=== PATIENT | female | born 1960 | race Caucasian/White ===

== ENCOUNTER 2018-02-07 07:00 | Day surgery (SDC) | END 2018-02-07 16:37 | disposition home or self-care (01) ==

== ENCOUNTER 2018-07-28 09:11 | Inpatient (IN) | payer OTHER ==
[2018-07-27 13:09] VITALS: BMI 28.7
[~2018-07-28] VITALS: Ht 160 cm; Wt 73.6 kg
[2018-07-28] VITALS (21 sets, daily range): BP systolic 121–195; BP diastolic 59–94; PULSE 58–92; RESP 14–18; Ht 160 cm; Wt 73.6 kg
[~2018-07-28 09:11] MED LIST: CEFAZOLIN 2 GM/50 ML (PMX) 50 ML IVPB SCH; METO-335 PO; SOD CHLORIDE 0.9% 1,000 ML IV ONE
--- NOTE | 2018-07-28 12:56 | PREAC ---
Date/Time of Note Date/Time of Note DATE: 07/28/18 TIME: 12:54 Anesthesia Eval and Record Evaluation Time Pre-Procedure Interview DATE: 07/28/18 TIME: 12:54 Age 57 Sex female NPO: 8 hrs Preoperative diagnosis L breast CA Planned procedure L needle loc partial mastectomy Past Medical History Past Medical History: Includes Cardio: HTN Psych: Anxiety (palpitations) Surgery & Anesthesia Issues No known issue Meds Anticoagulation: No Beta Shanda within 24 hr: Yes Reported Medications Metoprolol Succinate* (Toprol XL*) 25 Mg Tab.sr.24h, 25 MG PO DAILY, #30 TAB 02/07/18 Current Medications Cefazolin Sodium/ Dextrose 50 ml @ 100 mls/hr PRE-OP IVPB ; Start 07/28/18 at 06:00; Stop 07/28/18 at 15:00 Sodium Chloride 1,000 ml @ 75 mls/hr [id number] ONCE IV ; Start 07/28/18 at 06:00; Stop 07/28/18 at 19:19 Meds reviewed: Yes Allergies Coded Allergies: No Known Allergies (Verified Allergy, Unknown, 07/28/18) Allergies Reviewed: Yes Labs/Studies Labs Reviewed: Reviewed by anesthesiologist test: N/A Pre-procedure Exam Airway: Adequate mouth opening, Adequate thyromental dist Mallampati: Mallampati II Teeth: Normal Lung: Normal Heart: Normal ASA Physical Status ASA physical status: 2 Emergency: None Planned Anesthetic General/MAC: LMA Pre-operative Attestations Prior to commencing anesthesia and surgery, the patient was re-evaluated, there was verification of: *The patient's identity *The results of appropriate recent lab work and preoperative vital signs *The above evaluation not changing prior to induction *Anesthetic plan, risk benefits, alternative and complications discussed with patient/family; questions answered; patient/family understands, accepts and wishes to proceed. Stenographer Secretary used JENNA NINA July 28, 2018 12:56
[2018-07-28] MEDS ORDERED: FENTAnyl 50 MCG/ML VIAL IV PRN ×2 (13:00)
[2018-07-28] MEDS ORDERED: OXYCODONE/ACETAMINOPHEN (5/325) TAB PO PRN ×2 (13:00)
[2018-07-28] MEDS ORDERED: ALBUTEROL 0.083% (NEB) 2.5 MG/3 ML AMP HHN PRN (13:00)
[2018-07-28] MEDS ORDERED: MEPERIDINE 25 MG INJ IV PRN (13:00)
[2018-07-28] MEDS ORDERED: morphine (1 MG/ML) 10ML SYRINGE IV PRN ×2 (13:00)
[2018-07-28] MEDS ORDERED: ONDANSETRON 4 MG INJ IV PRN ×2 (13:00→15:30)
[2018-07-28] MEDS ORDERED: HYDROmorphONE 1 MG/5 ML IV SYRINGE IV PRN ×3 (13:00)
[2018-07-28] MEDS ORDERED: DIPHENHYDRAMINE 50 MG INJ IV PRN (13:00)
[2018-07-28] MEDS ORDERED: ISOSULFAN BLUE 1% 5 ML INJ SC ONE (13:11)
[2018-07-28] MEDS ORDERED: MIDAZOLAM 1 MG/ML 2 ML INJ ONE (13:21)
[2018-07-28] MEDS ORDERED: FENTAnyl 50 MCG/ML VIAL ONE ×2 (13:21→15:16)
[2018-07-28] MEDS ORDERED: CEFAZOLIN 1 GM INJ ONE (13:21)
[2018-07-28] MEDS ORDERED: PROPOFOL 40 ML ONE (13:21)
[2018-07-28] MEDS ORDERED: LIDOCAINE 2% (SDV) 5 ML INJ ONE (13:21)
[2018-07-28] MEDS ORDERED: ONDANSETRON 4 MG INJ ONE (13:22)
[2018-07-28] MEDS ORDERED: FAMOTIDINE 20 MG INJ ONE (13:22)
--- NOTE | 2018-07-28 15:07 | SIPON ---
Date/Time of Note Date/Time of Note DATE: 07/28/18 TIME: 15:06 Operative Report Preoperative Diagnosis Locally advanced left breast cancer Postoperative Diagnosis Same Operation/Procedure Performed Left needle directed partial mastectomy and axillary dissection utilizing se ntinel lymph node technique Surgeon see signature line sales and marketing assistant Dr Momin Anesthesia: general Estimated blood loss: 10 - 50 ml's Transfusion Required none Specimen Left partial mastectomy specimen sentinel lymph node and additional axillary nodes Grafts/Implants none Complications none BAIRON SCHMIDT MD July 28, 2018 15:07
--- NOTE | 2018-07-28 15:25 | PAC ---
Date/Time of Note Date/Time of Note DATE: 07/28/18 TIME: 15:24 Post-Anesthesia Notes Post-Anesthesia Note Last documented vital signs Vital Signs Date Temp Pulse Resp B/P (MAP) Pulse Ox O2 O2 Flow FiO2 Time Delivery Rate 07/28/18 97.2 98 65 94 16 16 166/74 98 100 Room 12:50 151 (104) 187 Air face mask 6L Activity: WNL Respiratory function: WNL Cardiovascular function: WNL Mental status: Baseline Pain reasonably controlled: Yes Hydration appropriate: Yes Nausea/Vomiting absent: Yes JENNA NINA July 28, 2018 15:25
[2018-07-28] MEDS ORDERED: ACETAMINOPHEN 1000MG/100ML IV 100 ML IVPB PRN (15:30)
[2018-07-28] MEDS: LABETALOL HCL 20MG INJ IV PRN ×2 (15:35→15:44)
[2018-07-28] MEDS ORDERED: KETOROLAC 30 MG INJ IV STA (17:27)
[2018-07-28] MEDS ORDERED: hydrALAzine 20 MG INJ IV PRN (17:30)
[2018-07-28] MEDS ORDERED: METOPROLOL (XL) 25 MG TAB PO SCH (17:30)
[2018-07-28] MEDS: D5W-0.45 NACL + KCL 20 MEQ 1,000 ML IV SCH ×2 (17:42)
--- NOTE | 2018-07-28 18:15 | OPR ---
DATE OF OPERATION: 07/28/2018 PREOPERATIVE DIAGNOSIS: Locally advanced left breast cancer. POSTOPERATIVE DIAGNOSIS: Locally advanced left breast cancer. OPERATION PERFORMED: Needle-directed left partial mastectomy and axillary dissection utilizing senti narinder lymph node technique. ANESTHESIA: General. ANESTHESIOLOGIST: Ghada Florence MD SURGEON: Christopher Nolasco MD ASSITANT: ____ INDICATIONS FOR PROCEDURE: The patient is a 57-year-old female that presented with a 4 cm tumor whic h was HER-2 positive; therefore, she underwent neoadjuvant chemotherapy. She has very good response to neoadjuvant chemotherapy and was a candidate for breast conservation surgery. She consented and w as scheduled for surgery. DESCRIPTION OF PROCEDURE: The patient on the morning of surgery presented to [facility] where she underwent localization of the lesion performed by attending radiologi st, Dr. Jun Spicer. Subsequently, she was brought to the operating theater and placed under gen eral endotracheal tube anesthesia. The left breast and axillary region was prepped and draped in usu al sterile fashion. Approximately 3 to 4 mL of 1% Lymphazurin blue dye were then injected peritumora lly and the breast was gently massaged for approximately 12 minutes. At this point, a 3 to 4 cm inci young was made in the left axillary hairline. Subcutaneous tissue was dissected with cautery down thr ough the clavipectoral fascia. A dye-stained lymphatic was identified and traced to the sentinel nod e. The sentinel node was associated with several other somewhat enlarged nodes. The sentinel node w as removed using the LigaSure device and an additional level 1 nodes which appeared to be enlarged we re also removed using the LigaSure device. Intraoperative analysis of the sentinel node did not reve al definite evidence of metastatic disease; therefore, no further lymph nodes were taken. The specim ens were sent for permanent pathologic analysis. The wound was irrigated. Minimal bleeding was cont rolled with cautery. A #10 flat Jim-Lizarraga drain was then brought through the left mid axillary l ine, cut to size and laid within the axilla. It was secured in place with 2-[address] andard fashion and the skin was then reapproximated with 4-0 Vicryl suture in interrupted fashion and then final skin approximation took place with 4-0 Vicryl suture in subcuticular fashion. Attention was then directed to performing the partial mastectomy. A curvilinear incision was made in the upper inner quadrant of the breast near the previously placed localization wires. Subcutaneous tissue was dissected with cautery. The skin edges were then elevated with skin hooks and wide circumferential dissection of the tissue bracketed by the [address]. There was severe scar tissue exte nding into the intercostal muscle; therefore, a portion of the intercostal muscle was removed. The s pecimen was then transected, oriented, and sent for permanent pathologic analysis. Decision was made to mobilize a local tissue adjacent to the medial aspect of the incision, and this was rotated somew hat medially to cover the defect over the muscle that had been removed. It was secured in place with multiple 2-0 silk sutures. The wound was then irrigated. Minimal bleeding was controlled with caut tosin. The skin was then closed in 2-layer fashion with 4-0 Vicryl sutures in interrupted fashion, fol lowed by final skin approximation with 5-0 PDS sutures in subcuticular fashion. Benzoin and Steri-St rips were applied to both incisions. The patient tolerated procedure well. The estimated blood loss was approximately 30 mL. There were no complications and the patient was transported in [facility] to the recovery room. Dictated By: CHRISTOPHER COLON/MANASA Conf#: [id number] DID#: [id number]
--- NOTE | 2018-07-28 23:18 | HP ---
DATE OF ADMISSION: 07/28/2018 CHIEF COMPLAINT AND HISTORY OF PRESENT ILLNESS: History has been obtained from medical record and di scussion with patient's daughter. The patient is a 57-year-old female with history of hypertension w ho was diagnosed with a left-sided locally advanced breast cancer. The patient's tumor was HER-2 pos itive. The patient therefore underwent neoadjuvant chemotherapy with good response and was a lokesh te for breast conservation surgery. The patient underwent needle-directed left partial mastectomy an d axillary resection by Dr. Christopher Nolasco. Postoperatively the patient has significant pain and also had uncontrolled blood pressure. The patient is being admitted for further evaluation and management . REVIEW OF SYSTEMS: The patient denied any nausea or vomiting. No reported vomiting. No reported le g edema. No reported headache, dizziness or syncope. No history of focal weakness. No history of r ecent fever or chills. No history of recent dysuria or hematuria. Other than postoperative pain, re st of review of systems unremarkable. PAST MEDICAL HISTORY: As stated above. PAST SURGICAL HISTORY: As stated above. In addition, the patient also has history of Port-A-Cath pl acement back in January 2018. ALLERGIES: NONE. FAMILY HISTORY: Noncontributory. SOCIAL HISTORY: No smoking or alcohol. MEDICATIONS PRIOR TO ADMISSION: Toprol. PHYSICAL EXAMINATION: GENERAL: The patient is awake, alert, fairly oriented. VITAL SIGNS: Temperature 98, pulse 67, respiration 18, blood pressure 195/84, O2 saturation is 100% on 2 liters cannula. HEENT: No eye discharge or redness. Conjunctivae and lids are normal. Oropharynx is clear. NECK: Supple. No mass or thyromegaly. CHEST: Fairly clear. CARDIOVASCULAR: S1, S2 normal. No murmur. ABDOMEN: Soft, nontender and nondistended. EXTREMITIES: No leg edema. NEUROLOGIC: The patient is awake, alert, fairly oriented with no gross focal deficit. RECENT LABORATORY DATA: BUN 19, creatinine 0.6, sodium 141, potassium 3.9, glucose 130, calcium 9.2, bilirubin 0.4, AST 16, ALT 14, alkaline phosphatase 114. IMPRESSION: 1. Locally advanced left breast cancer status post chemo and underwent needle-directed left partial mastectomy and axillary resection. 2. Hypertension out of control. PLAN: 1. The patient admitted on telemetry floor. The patient will be started on clear liquid diet, which will be advanced as tolerated. 2. Toprol will be resumed and we will also add IV hydralazine 20 mg q.6 hours p.r.n. for uncontrolle d blood pressure. 3. For pain, the patient will be started on Tylenol, [place] and IV morphine. 4. We will use SCD for DVT prophylaxis. We will do CBC and BMP tomorrow. 5. Plan of care was discussed with the family. If patient continues to do well, she will be dischar ge home tomorrow. Dictated By: INURKA MARQUEZ MD AB/NTS Conf#: [id number] DID#: [id number] CC: CHRISTOPHER NOLASCO MD;*End*
[2018-07-29] VITALS (11 sets, daily range): BP systolic 113–153; BP diastolic 58–70; PULSE 68–88; RESP 17–18
[2018-07-29] MEDS: morphine 2 MG INJ IV PRN ×2 (02:52→20:10)
[2018-07-29] MEDS: D5W-0.45 NACL + KCL 20 MEQ 1,000 ML IV SCH ×2 (07:07→16:37)
[2018-07-29] MEDS: HYDROCODONE/APAP (5/325) TAB PO PRN ×3 (07:48→22:30)
[2018-07-29] MEDS: METOPROLOL (XL) 50 MG TAB PO SCH (08:14)
--- NOTE | 2018-07-29 11:34 | PN ---
Date/Time of Note Date/Time of Note DATE: 07/29/18 TIME: 11:33 Assessment/Plan VTE Prophylaxis Risk score (from Nsg)>0 risk: 3 SCD applied (from Ns): Yes Pharmacological prophylaxis: LMWH Lines/Catheters IV Catheter Type (from Nrs): Saline Lock Assessment/Plan Hospital Course 1. The patient admitted on telemetry floor. The patient will be started on clear liquid diet, which will be advanced as tolerated. 2. Toprol will be resumed and we will also add IV hydralazine 20 mg q.6 hours p.r.n. for uncontrolled blood pressure. 3. For pain, the patient will be started on Tylenol, [place] and IV morphine. 4. We will use SCD for DVT prophylaxis. We will do CBC and BMP tomorrow. 5. Plan of care was discussed with the family. If patient continues to do well, she will be discharged home tomorrow. Result Diagram: 07/29/18 0524 07/29/18 0524 Results 24hrs Laboratory Tests Test 07/29/18 05:24 White Blood Count 5.9 Red Blood Count 3.35 L Hemoglobin 10.5 L Hematocrit 31.8 L Mean Corpuscular Volume 94.9 Mean Corpuscular Hemoglobin 31.3 Mean Corpuscular Hemoglobin Concent 33.0 Red Cell Distribution Width 14.0 Platelet Count 187 Mean Platelet Volume 9.6 Immature Granulocytes % 0.300 Neutrophils % 64.7 Lymphocytes % 25.9 Monocytes % 8.0 Eosinophils % 0.9 Basophils % 0.2 Nucleated Red Blood Cells % 0.0 Immature Granulocytes # 0.020 Neutrophils # 3.8 Lymphocytes # 1.5 Monocytes # 0.5 Eosinophils # 0.1 Basophils # 0.0 Nucleated Red Blood Cells # 0.0 Sodium Level 138 Potassium Level 4.1 Chloride Level 106 Carbon Dioxide Level 25 Anion Gap 7 Blood Urea Nitrogen 14 Creatinine 0.52 Est Glomerular Filtrat Rate mL/min > 60 Glucose Level 126 Calcium Level 9.2 Subjective 24 Hr Interval Summary Free Text/Dictation Patient has pain in chest related to surgery Exam/Review of Systems Exam Vitals Vital Signs Date Temp Pulse Resp B/P (MAP) Pulse Ox O2 O2 Flow FiO2 Time Delivery Rate 07/29/18 98.0 78 18 125/67 97 Nasal 11:20 (86) Cannula 07/29/18 2.0 08:00 Intake and Output 07/28/18 07/28/18 07/29/18 1515:00 23:00 07:00 IntakeIntake Total 1300 ml OutputOutput Total 30 ml BalanceBalance 1270 ml Constitutional: well developed Head: normocephalic, atraumatic Neck: supple Respiratory: diminished breath sounds Cardiovascular: regular rate and rhythm Gastrointestinal: soft, non-tender Extremities: normal pulses Results Results 24hrs Laboratory Tests Test 07/29/18 05:24 White Blood Count 5.9 Red Blood Count 3.35 L Hemoglobin 10.5 L Hematocrit 31.8 L Mean Corpuscular Volume 94.9 Mean Corpuscular Hemoglobin 31.3 Mean Corpuscular Hemoglobin Concent 33.0 Red Cell Distribution Width 14.0 Platelet Count 187 Mean Platelet Volume 9.6 Immature Granulocytes % 0.300 Neutrophils % 64.7 Lymphocytes % 25.9 Monocytes % 8.0 Eosinophils % 0.9 Basophils % 0.2 Nucleated Red Blood Cells % 0.0 Immature Granulocytes # 0.020 Neutrophils # 3.8 Lymphocytes # 1.5 Monocytes # 0.5 Eosinophils # 0.1 Basophils # 0.0 Nucleated Red Blood Cells # 0.0 Sodium Level 138 Potassium Level 4.1 Chloride Level 106 Carbon Dioxide Level 25 Anion Gap 7 Blood Urea Nitrogen 14 Creatinine 0.52 Est Glomerular Filtrat Rate mL/min > 60 Glucose Level 126 Calcium Level 9.2 Medications Medication Current Medications Ondansetron HCl (Zofran Inj) 4 mg Q6H PRN IV NAUSEA AND/OR VOMITING; Start 07/28/18 at 15:30 Potassium Chloride/Dextrose/ Sod Cl 1,000 ml @ 125 mls/hr Q8H IV Last administered on 07/28/18at 00:00; Admin Dose 125 MLS/HR; Start 07/28/18 at 15:07 Morphine Sulfate (morphine) 2 mg Q1H PRN IV PAIN Last administered on 07/29/18at 02:52; Admin Dose 2 MG; Start 07/28/18 at 15:30 Acetaminophen 100 ml @ 400 mls/hr Q6H PRN IVPB PAIN; Start 07/28/18 at 15:30; Stop 07/29/18 at 15:29 Acetaminophen/ Hydrocodone Bitart ([place] (5/325)) 1 tab Q4H PRN PO MODERATE PAIN LEVEL 4-6 Last administered on 07/29/18at 07:48; Admin Dose 1 TAB; Start 07/28/18 at 17:30 Hydralazine HCl (Apresoline) 20 mg Q6H PRN IV BP>160/100; Start 07/28/18 at 17:30 Metoprolol Succinate (Toprol Xl) 50 mg DAILY PO Last administered on 07/29/18at 08:14; Admin Dose 50 MG; Start 07/29/18 at 09:00 ERIC SALGUERO July 29, 2018 11:34
--- NOTE | 2018-07-29 16:26 | PN ---
DATE: 07/29/2018 Postop day #1, status post left breast partial mastectomy for locally advanced cancer and axillary dissection. SUBJECTIVE: Patient has been complaining of too much pain and also shortness of breath when she goes to the bathroom. OBJECTIVE: GENERAL: Awake, alert and oriented. VITAL SIGNS: Temperature 98.2, heart rate 80, respirations 18, , saturation 97% on 2 liters nasal cannula. On physical examination, the patient is not in acute distress. The wrap around dressing is not too tight. Overall, the dressing is intact. The patient can move the left upper extremity almost at full range, but slowly. Abdomen is soft. Legs no calf tenderness. LABORATORY DATA: Today, WBC is 5900 with 64% segmented, hemoglobin 10.5, hematocrit 31.8, platelets 187. Chemistry: Sodium, potassium normal, BUN and creatinine normal. The medical service, Dr. Carty has seen the patient as well and he is managing the blood pressure as the patient has of course history of high blood pressure. He is recommended to keep the patient overnight and evaluate the patient tomorrow and most probably discharge the patient tomorrow. From surgical point of view, it is okay with us. The patient can be discharged when okay with medical service. Dictated By: DAO JARRETT MD PS/NTS Conf#: [id number] DID#: [id number] CC: BAIRON SCHMIDT MD; NIURKA MARQUEZ MD;*EndCC* MTDD
[2018-07-30] VITALS (12 sets, daily range): BP systolic 127–165; BP diastolic 57–78; PULSE 63–75; RESP 16–20
[2018-07-30] MEDS: D5W-0.45 NACL + KCL 20 MEQ 1,000 ML IV SCH ×5 (02:13→19:16)
[2018-07-30] MEDS: HYDROCODONE/APAP (5/325) TAB PO PRN ×2 (06:27→14:52)
[2018-07-30] MEDS: METOPROLOL (XL) 50 MG TAB PO SCH (09:21)
[2018-07-30] MEDS: morphine 2 MG INJ IV PRN ×2 (09:22→22:44)
--- NOTE | 2018-07-30 12:34 | PN ---
Date/Time of Note Date/Time of Note DATE: 07/30/18 TIME: 12:33 Assessment/Plan VTE Prophylaxis Risk score (from Nsg)>0 risk: 5 SCD applied (from Nsg): Yes Pharmacological prophylaxis: LMWH Lines/Catheters IV Catheter Type (from Nrsg): Sal[place] Assessment/Plan Hospital Course 1. The patient admitted on telemetry floor. The patient will be started on clear liquid diet, which will be advanced as tolerated. 2. Toprol will be resumed and we will also add IV hydralazine 20 mg q.6 hours p.r.n. for uncontrolled blood pressure. 3. For pain, the patient will be started on Tylenol, [place] and IV morphine. 4. We will use SCD for DVT prophylaxis. We will do CBC and BMP tomorrow. 5. Plan of care was discussed with the family. If patient continues to do well, she will be discharged home tomorrow. Result Diagram: 07/29/1852307/29/18523 Subjective 24 Hr Interval Summary Free Text/Dictation Patient still having fair amount of pain, have walked in limited fashion. Exam/Review of Systems Exam Vitals Vital Signs Date Temp Pulse Resp B/P (MAP) Pulse Ox O2 O2 Flow FiO2 Time Delivery Rate 07/30/18 98.4 67 17 127/62 97 11:20 (83) 07/30/18 Nasal 2.0 08:00 Cannula Intake and Output 07/29/18 07/29/18 07/30/18 1515:00 23:00 07:00 IntakeIntake Total 810 ml 480 ml BalanceBalance 810 ml 480 ml Constitutional: well developed Head: normocephalic, atraumatic Neck: supple Respiratory: diminished breath sounds Cardiovascular: regular rate and rhythm Gastrointestinal: soft, non-tender Extremities: normal pulses Medications Medication Current Medications Ondansetron HCl (Zofran Inj) 4 mg Q6H PRN IV NAUSEA AND/OR VOMITING; Start 07/28/18 at 15:30 Potassium Chloride/Dextrose/ Sod Cl 1,000 ml @ 125 mls/hr Q8H IV Last administered on 07/30/18at 09:22; Admin Dose 125 MLS/HR; Start 07/28/18 at 15:07 Morphine Sulfate (morphine) 2 mg Q1H PRN IV PAIN Last administered on 5/5/19at 09:22; Admin Dose 2 MG; Start 07/28/18 at 15:30 Acetaminophen/ Hydrocodone Bitart ([place] (5/325)) 1 tab Q4H PRN PO MODERATE PAIN LEVEL 4-6 Last administered on 07/30/18 06:27; Admin Dose 1 TAB; Start 07/28/18 at 17:30 Hydralazine HCl (Apresoline) 20 mg Q6H PRN IV BP>160/100; Start 07/28/18 at 17:30 Metoprolol Succinate (Toprol Xl) 50 mg DAILY PO Last administered on 07/30/18 09:21; Admin Dose 50 MG; Start 07/29/18 at 09:00 ERIC SALGUERO July 30, 2018 12:34
--- NOTE | 2018-07-30 15:52 | PN ---
DATE: 07/30/2018 Postop day #2 status post left breast, partial mastectomy with axillary resection for cancer of left breast. SUBJECTIVE: Still complaining of moderate pain, left chest anteriorly and laterally, aggravated more by taking breast, so much that she cannot take a deep breath. No nausea, no vomiting. OBJECTIVE: GENERAL: Awake, alert, oriented x3. VITAL SIGNS: Temperature maximum today 98.5, heart rate between 63 and 74, respirations 17, blood pressure 177/62 one occasion and another occasion 165/78, saturation 97% 2 liters nasal cannula. HEART: Regular. LUNGS: Clear. Dressing is intact. It is not too tight. She moves both upper extremities with full range. ABDOMEN: Soft. EXTREMITIES: No calf tenderness. There is no sequential compression device on the legs. ASSESSMENT AND PLAN: Postop day #2. The patient has continued to complain of left chest pain, mostly aggravated by taking deep breaths and also shortness of breath when she tries to take a deep breath as well. Even though it appears that most probably the pain is due to the trauma of the surgery, but considering that she is 57 years old and history of high blood pressure for a long time, I am going to request the operations officer afloat, Dr. Alexis, to take a look at the patient in this regard. Will continue to give her the pain medication and other medications which has been started by internal medicine for the patient. Dictated By: DAO JARRETT MD PS/NTS Conf#: [id number] DID#: [id number] CC: BAIRON SCHMIDT MD;*EndCC* MTDD
--- NOTE | 2018-07-30 19:52 | CONS ---
DATE OF ADMISSION: 07/30/2018 DATE OF CONSULTATION: 07/30/2018 REASON FOR CONSULTATION: Chest pain, shortness of breath, assess for acute coronary syndrome. REQUESTING PHYSICIAN: Dr. Jarrett from the surgical department. HISTORY OF PRESENT ILLNESS: Ms. Ferrer is a very pleasant 57-year-old female with a history of hypertension and left-sided breast cancer. The patient underwent chemotherapy with a good response and then subsequently was brought in and underwent partial mastectomy with axillary node di ssection. The patient postoperatively remained on the telemetry floor and complains of left-sided peralta bsternal chest pain, initially pleuritic in nature and then additionally a pressure-like component, w orse with moving her torso, but also worse with ambulation. Given these findings, cardiac consult re quested. PAST MEDICAL HISTORY: As above in HPI. MEDICATIONS CURRENTLY IN HOSPITAL: 1. Toprol-XL 50 mg daily. 2. [place] p.r.n. 3. Hydralazine p.r.n. 4. Zofran p.r.n. 5. Morphine p.r.n. ALLERGIES: NO KNOWN DRUG ALLERGIES. SOCIAL HISTORY: No current tobacco, ETOH or illicit drug use. FAMILY HISTORY: No sudden cardiac or early CAD. REVIEW OF SYSTEMS: CONSTITUTIONAL: No fevers, chills. PULMONARY: Positive shortness of breath, dyspnea on exertion. CARDIOVASCULAR: Intermittent chest pain. GASTROINTESTINAL: No vomiting. GENITOURINARY: No hematuria. MUSCULOSKELETAL: Degenerative joint disease. PSYCHIATRIC: Positive anxiety. NEUROLOGIC: No documented history of CVA. PHYSICAL EXAMINATION VITAL SIGNS: Temperature 98.4, blood pressure most recently 150/70, pulse 66, respiratory rate 17, s at 98%. GENERAL: The patient is alert, awake, no acute distress. NECK: JVP approximately 8 to 9 pounds water. CHEST: Fair air movement throughout the mid chest. Additionally, left side covered by dressing. HEART: Regular rate and rhythm. Normal S1, S2, I/ systolic murmur, nondisplaced PMI. ABDOMEN: Positive bowel sounds, soft. EXTREMITIES: No significant pitting edema, 1+ pulses bilateral posterior tibial. LABORATORY DATA: Most recently from the 4th -- white count 5.9 and a 2.5, platelet 187. Sodium 138, potassium 4.1, creatinine 0.5, BUN 14. IMAGING STUDIES: As above in HPI. No further imaging for my review at this time. ECG: Electrocardiogram from preoperative 06/20/2018 revealed sinus rhythm at a rate of 65, normal ax is, normal intervals, isolated T-wave flattening in aVL. IMPRESSION: 1. Chest pain, assess for acute coronary syndrome. It does appear to be more related to the patient 's surgical site, with movement of her upper torso, any palpation of the area and exertional activiti es. 2. Hypertension, somewhat labile, overall resolved, but likely related to pain. 3. History of dyslipidemia. 4. Breast carcinoma status post mastectomy and axillary node dissection. 5. Anemia. RECOMMENDATIONS: 1. At this time, would maintain patient on telemetry monitoring to follow rhythm and rate control cl osely. 2. We will continue the patient's Toprol at this time and will give patient sublingual nitroglycerin for recurrent episodes of chest pain to assess her response. 3. Would additionally continue [place] pain medication. 4. Check a 2D echo for this patient's ejection fraction as possible given the patient's recent surge ry. 5. Check serial EKGs to assess for significant ongoing changes. 6. We will complete a rule out for myocardial infarction to ensure this patient's chest pain is not due to an acute coronary syndrome, acute myocardial infarction and will consider repeat chest x-ray, rule out any pulmonary pathology may be lending to pleuritic chest pain. Thank you for allowing me to take part in the care of this patient. I will continue to follow very c losely with you. Further recommendations will be made as the patient progresses through his [facility] clinical course. Dictated By: SREE GUTHRIE/MANASA Conf#: [id number] DID#: [id number] CC: DAO JARRETT MD; BAIRON SCHMIDT MD;*EndCC*
[2018-07-31] VITALS (10 sets, daily range): BP systolic 153–159; BP diastolic 68–74; PULSE 60–84; RESP 18–20
[2018-07-31] MEDS: D5W-0.45 NACL + KCL 20 MEQ 1,000 ML IV SCH ×6 (05:00→23:07)
[2018-07-31] MEDS: HYDROCODONE/APAP (5/325) TAB PO PRN (05:11)
[2018-07-31] MEDS: METOPROLOL (XL) 50 MG TAB PO SCH (08:30)
[2018-07-31] MEDS: morphine 2 MG INJ IV PRN ×2 (11:42→19:48)
--- NOTE | 2018-07-31 15:08 | PN ---
Date/Time of Note Date/Time of Note DATE: 07/31/18 TIME: 15:00 Assessment/Plan VTE Prophylaxis Risk score (from Ns)>0 risk: 5 SCD applied (from Ns): Yes Pharmacological prophylaxis: NA/contraindicated Pharm contraindication: surgical contra Lines/Catheters IV C[facility] Type [facility]from [facility] Saline Lock Assessment/Plan Hospital Course Patient complains of left sided chest pain with taking a breath, however, stated she feels slightly better today since she is able to get out of bed and ambulate to the bathroom after her surgery on Tuesday. Continue on [place] and Dilaudid for pain. Encourage ambulation. Pending 2D echo and cardiac enzymes series. Assessment/Plan -Postop bradycardia with chest pain and shortness of breath, rule out acute coronary syndrome. Dr. Alexis is following in cardiology consultation. -Locally advanced left breast cancer, status post chemo. S/p needle-directed left partial mastectomy and axillary dissection utilizing sentinel lymph node technique by Dr. Nolasco. Renew [place] and morphine as needed for pain and Zofran as needed for nausea. -Hypertension. Continue metoprolol. Further recommendations based on clinical course. Plan of care discussed with Dr. Nava. Result Diagram: 07/31/18 1248 07/31/18 1248 Results 24hrs Laboratory Tests Test 07/31/18 12:48 White Blood Count 6.1 Red Blood Count 3.74 L Hemoglobin 11.7 L Hematocrit 36.0 L Mean Corpuscular Volume 96.3 Mean Corpuscular Hemoglobin 31.3 Mean Corpuscular Hemoglobin Concent 32.5 Red Cell Distribution Width 13.6 Platelet Count 225 # Mean Platelet Volume 9.5 Immature Granulocytes % 0.300 Neutrophils % 58.9 Lymphocytes % 32.3 Monocytes % 6.6 Eosinophils % 1.6 Basophils % 0.3 Nucleated Red Blood Cells % 0.0 Immature Granulocytes # 0.020 Neutrophils # 3.6 Lymphocytes # 2.0 Monocytes # 0.4 Eosinophils # 0.1 Basophils # 0.0 Nucleated Red Blood Cells # 0.0 Sodium Level 139 Potassium Level 4.3 Chloride Level 105 Carbon Dioxide Level 27 Anion Gap 7 Blood Urea Nitrogen 9 Creatinine 0.48 Est Glomerular Filtrat Rate mL/min > 60 Glucose Level 130 Calcium Level 9.4 Troponin I < 0.012 Exam/Review of Systems Exam Vitals Vital Signs Date Temp Pulse Resp B/P (MAP) Pulse Ox O2 O2 Flow FiO2 Time Delivery Rate 07/31/18 65 12:01 07/31/18 98.3 20 159/72 96 11:23 (101) 07/31/18 Nasal 2.0 08:00 Cannula Intake and Output 07/30/18 07/30/18 07/31/18 1515:00 23:00 07:00 IntakeIntake Total 900 ml 500 ml BalanceBalance 900 ml 500 ml Constitutional: alert, oriented Head: normocephalic Respiratory: clear to auscultation Cardiovascular: regular rate and rhythm Gastrointestinal: soft, non-tender Extremities: normal pulses Neurological: nl mental status Additional Comments Status post left partial mastectomy Results Results 24hrs Laboratory Tests Test 07/31/18 12:48 White Blood Count 6.1 Red Blood Count 3.74 L Hemoglobin 11.7 L Hematocrit 36.0 L Mean Corpuscular Volume 96.3 Mean Corpuscular Hemoglobin 31.3 Mean Corpuscular Hemoglobin Concent 32.5 Red Cell Distribution Width 13.6 Platelet Count 225 # Mean Platelet Volume 9.5 Immature Granulocytes % 0.300 Neutrophils % 58.9 Lymphocytes % 32.3 Monocytes % 6.6 Eosinophils % 1.6 Basophils % 0.3 Nucleated Red Blood Cells % 0.0 Immature Granulocytes # 0.020 Neutrophils # 3.6 Lymphocytes # 2.0 Monocytes # 0.4 Eosinophils # 0.1 Basophils # 0.0 Nucleated Red Blood Cells # 0.0 Sodium Level 139 Potassium Level 4.3 Chloride Level 105 Carbon Dioxide Level 27 Anion Gap 7 Blood Urea Nitrogen 9 Creatinine 0.48 Est Glomerular Filtrat Rate mL/min > 60 Glucose Level 130 Calcium Level 9.4 Troponin I < 0.012 Medications Medication Current Medications Ondansetron HCl (Zofran Inj) 4 mg Q6H PRN IV NAUSEA AND/OR VOMITING; Start 07/28/18 at 15:30 Potassium Chloride/Dextrose/ Sod Cl 1,000 ml @ 125 mls/hr Q8H IV Last administered on 07/31/18at 11:41; Admin Dose 125 MLS/HR; Start 07/28/18 at 15:07 Morphine Sulfate (morphine) 2 mg Q1H PRN IV PAIN Last administered on 07/31/18at 11:42; Admin Dose 2 MG; Start 07/28/18 at 15:30 Acetaminophen/ Hydrocodone Bitart ([place] (5/325)) 1 tab Q4H PRN PO MODERATE PAIN LEVEL 4-6 Last administered on 07/31/18at 05:11; Admin Dose 1 TAB; Start 07/28/18 at 17:30 Hydralazine HCl (Apresoline) 20 mg Q6H PRN IV BP>160/100; Start 07/28/18 at 17:30 Metoprolol Succinate (Toprol Xl) 50 mg DAILY PO Last administered on 07/31/18at 08:30; Admin Dose 50 MG; Start 07/29/18 at 09:00 ELENA YU July 31, 2018 15:08
--- NOTE | 2018-07-31 16:23 | PN ---
DATE: 07/31/2018 Postop day #3 status post left breast partial needle located partial mastectomy with axillary dissect ion utilizing sentinel lymph node technique. SUBJECTIVE: Still requires frequent pain medication for control of the left chest pain post-operatio n. OBJECTIVE: GENERAL: Awake, alert, oriented. The patient is not in acute distress. VITAL SIGNS: Temperature maximum 98.3, heart rate fluctuating between 72 and 65, respirations 20, bl ood pressure 159/72, saturation 96% on 2 liters nasal cannula. LUNGS: Respiration is not labored. HEART: Regular rate about 68. CHEST: Dressing is wrapped around and is intact. There is no oozing or bleeding. ABDOMEN: Soft. EXTREMITIES: Legs have no calf tenderness. No pitting edema. LABORATORY DATA: CBC was done. WBC 6100 with 59% segmented, hemoglobin 11.7, hematocrit 36, platele t 225. Chemistry is pending. ASSESSMENT AND PLAN: The patient is postop day #3, continues to complain of chest wall pain which mo st probably is due to the incisional and operative pain, but states also that the pain aggravates whe n she takes deep breath (pleuritic chest pain) or she walks, but also admits that the pain today is b mehdi than 2 days ago. Last night, I requested Dr. Alexis to see the patient in consultation. He h as seen the patient and has ordered cardiac echo, EKG and blood test. Also according to the operativ e report, the tumor was adherent to the chest wall which due to chemotherapy had caused some fibrosis and in the process of resection, there has been some kind of damage to the intercostal muscle in jessie t area due to adhesion of the fibrous tissue which they had to remove it. Therefore, the intercostal nerve could have been damaged too and this pain could be due to that one. I am going to order also a chest x-ray to make sure that everything else is okay. Therefore, at this time we will continue to keep the patient in the hospital, give pain medication, follow the cardiology recommendation. It sh ould be mentioned that patient is tolerating regular food with no problem. Dictated By: DAO JARRETT MD PS/NTS Conf#: [id number] DID#: [id number] CC: BAIRON SCHMIDT MD; NIURKA MARQUEZ MD;*EndCC*
--- NOTE | 2018-07-31 18:00 | RADRPT ---
Echocardiogram Report Patient Name: Kia BARFIELDtient ID: [id number] : 1960 (58y )Study Date: 07/31/2018 12:48:22 PM Gender: FAccession #: [id number] Tech: Chuckie Hudson [facility] Location: [facility] Ref.Physician: SREE ALEXIS Height(Cm): BSA: Weight(Kg): Quality: Technically Difficult StudyAccount #: Procedures: Echocardiographic Report: Transthoracic echocardiogram with complete 2D, M-Mode, and doppler examination. Indications: Chest Pain. Measurements: 2D/M Mode Doppler Measurement Value Normal Range Measurement Value Normal Range LVIDd 2D 4.4 [ 3.8 - 5.2 ] cm AV Mean Yonis 1.3 [ 70.0 - 90.0 ] cm/sec LVIDs 2D 2.8 [ 2.2 - 3.5 ] cm AV Mean PG 8.0 [ 2.0 - 4.0 ] mmHg LVPWd 2D 1.0 [ 0.6 - 0.9 ] cm AV VTI 45.8 cm IVSd 2D 1.0 [ 0.6 - 0.9 ] cm LVOT Mean Yonis 0.8 [ 60.0 - 80.0 ] cm/sec AoR Diam 2D 2.2 [ 2.3 - 3.1 ] cm LVOT Mean PG 3.0 [ 1.0 - 3.0 ] mmHg EDV 2D 86.8 [ 46.0 - 106.0 ] ml LVOT Peak Yonis 1.3 [ 70.0 - 110.0 ] cm/sec ESV 2D 29.3 [ 14.0 - 42.0 ] ml LVOT Peak PG 6.0 [ 2.0 - 6.0 ] mmHg EF 2D 66.2 [ 54.0 - 74.0 ] percent LVOT VTI 25.3 [ 20.0 - 30.0 ] cm LA Dimen 2D 3.5 [ 2.7 - 3.8 ] cm MV E Peak Yonis 0.8 [ 60.0 - 130.0 ] cm/sec MV A Peak Yonis 0.8 [ 100.0 - 120.0 ] cm/sec MV E/A 1.0 [ 0.8 - 1.5 ] ratio MV Decel Time 271 [ 104 - 258 ] msec Lat E` Yonis 0.1 [ 10.0 - 15.0 ] cm/sec Lateral E/E` 10.7 [ 1.0 - 2.0 ] ratio MV E/A 1.0 [ 0.8 - 1.5 ] ratio TR Peak Yonis 2.1 [ 100.0 - 280.0 ] cm/sec TR Peak PG 17.0 mmHg RVSP 20.0 [ 10.0 - 36.0 ] mmHg RA Pressure 3.0 mmHg Findings: Left Ventricle: Normal left ventricular systolic function. Normal left ventricular cavity size. Mild concentric left ventricular hypertrophy. Ejection fraction is visually estimated at 60-65 %. Tissue Doppler/Mitral Doppler indices are consistent with impaired relaxation (Stage I diastolic dysfunction). Right Ventricle: Normal right ventricular size. Normal right ventricular systolic function. Left Atrium: The left atrium is normal in size. Right Atrium: The right atrium is normal in size. Mitral Valve: Normal appearance and function of the mitral valve with trace physiologic regurgitation. Aortic Valve: Aortic valve Max velocity 2.19 m/sec. Max PG 19.00 mmHg. Mean PG 8.00 mmHg. Aortic sclerosis without significant stenosis. Trace aortic valve regurgitation. Tricuspid Valve: Normal appearance of the tricuspid valve. Estimated peak PA systolic pressure 20 mmHg. There is trace tricuspid regurgitation. Pulmonic Valve: Normal pulmonic valve appearance. Pericardium: Normal pericardium with no significant pericardial effusion. Aorta: Normal aortic root. IVC: Normal size and normal respiratory collapse consistent with normal right atrial pressure. Conclusions: Normal left ventricular systolic function. Normal left ventricular cavity size. Mild concentric left ventricular hypertrophy. Ejection fraction is visually estimated at 60-65 %. Tissue Doppler/Mitral Doppler indices are consistent with impaired relaxation (Stage I diastolic dysfunction). Normal appearance and function of the mitral valve with trace physiologic regurgitation. Normal appearance of the tricuspid valve. Estimated peak PA systolic pressure 20 mmHg. There is trace tricuspid regurgitation. Electronically Signed By: Sree Alexis 2018-07-31 17:59:40 PDT
[2018-07-31] MEDS ORDERED: NITROGLYCERIN (SL) 0.4 MG TAB SL PRN (19:00)
[2018-07-31] MEDS: BENAZEPRIL 10 MG TAB PO SCH (21:59)
[2018-08-01] VITALS (12 sets, daily range): BP systolic 136–165; BP diastolic 6–75; PULSE 62–98; RESP 18–20
[2018-08-01] MEDS: HYDROCODONE/APAP (5/325) TAB PO PRN ×3 (02:11→20:10)
[2018-08-01] MEDS: D5W-0.45 NACL + KCL 20 MEQ 1,000 ML IV SCH ×2 (06:25→15:21)
--- NOTE | 2018-08-01 08:53 | CONS ---
Consultation Date/Type/Reason Admit Date/Time July 30, 2018 at 16:03 Initial Consult Date Date/Time of Note DATE: 08/01/18 TIME: 08:53 24 HR Interval Summary Free Text/Dictation VS reviewed stable - ambulatory Exam/Review of Systems Exam Vitals Vital Signs Date Temp Pulse Resp B/P (MAP) Pulse Ox O2 O2 Flow FiO2 Time Delivery Rate 08/01/18 98.3 63 20 136/68 98 07:05 (90) 08/01/18 Room Air 04:00 07/31/18 2.0 22:47 Intake and Output 07/31/18 07/31/18 08/01/18 1515:00 23:00 07:00 IntakeIntake Total 900 ml 1400 ml BalanceBalance 900 ml 1400 ml Results Result Diagram: 08/01/18 0545 08/01/18 0545 Results 24hrs Laboratory Tests Test 07/31/18 12:48 07/31/18 18:17 08/01/18 00:25 08/01/18 05:45 White Blood Count 6.1 5.8 Red Blood Count 3.74 L 3.66 L Hemoglobin 11.7 L 11.4 L Hematocrit 36.0 L 35.0 L Mean Corpuscular Volume 96.3 95.6 Mean Corpuscular 31.3 31.1 Hemoglobin Mean Corpuscular 32.5 32.6 Hemoglobin Concent Red Cell Distribution 13.6 13.6 Width Platelet Count 225 # 235 Mean Platelet Volume 9.5 9.7 Immature Granulocytes % 0.300 0.300 Neutrophils % 58.9 59.2 Lymphocytes % 32.3 30.4 Monocytes % 6.6 7.6 Eosinophils % 1.6 2.2 Basophils % 0.3 0.3 Nucleated Red Blood 0.0 0.0 Cells % Immature Granulocytes # 0.020 0.020 Neutrophils # 3.6 3.4 Lymphocytes # 2.0 1.8 Monocytes # 0.4 0.4 Eosinophils # 0.1 0.1 Basophils # 0.0 0.0 Nucleated Red Blood 0.0 0.0 Cells # Sodium Level 139 140 Potassium Level 4.3 4.6 Chloride Level 105 105 Carbon Dioxide Level 27 26 Anion Gap 7 9 Blood Urea Nitrogen 9 11 Creatinine 0.48 0.53 Est Glomerular Filtrat > 60 > 60 Rate mL/min Glucose Level 130 124 Calcium Level 9.4 9.4 Troponin I < 0.012 < 0.012 < 0.012 Triglycerides Level 158 H Cholesterol Level 166 LDL Cholesterol, 101 Calculated HDL Cholesterol 33 L Cholesterol/HDL Ratio 5.0 Medications Medication Current Medications Ondansetron HCl (Zofran Inj) 4 mg Q6H PRN IV NAUSEA AND/OR VOMITING; Start 07/28/18 at 15:30 Potassium Chloride/Dextrose/ Sod Cl 1,000 ml @ 125 mls/hr Q8H IV Last administered on 08/01/18 06:25; Admin Dose 125 MLS/HR; Start 07/28/18 at 15:07 Morphine Sulfate (morphine) 2 mg Q1H PRN IV PAIN Last administered on 07/31/18 19:48; Admin Dose 2 MG; Start 07/28/18 at 15:30 Acetaminophen/ Hydrocodone Bitart ([place] (5/325)) 1 tab Q4H PRN PO MODERATE PAIN LEVEL 4-6 Last administered on 08/01/18 02:11; Admin Dose 1 TAB; Start 07/28/18 at 17:30 Hydralazine HCl (Apresoline) 20 mg Q6H PRN IV BP>160/100; Start 07/28/18 at 17:30 Metoprolol Succinate (Toprol Xl) 50 mg DAILY PO Last administered on 07/31/18 08:30; Admin Dose 50 MG; Start 07/29/18 at 09:00 Benazepril HCl (Lotensin) 10 mg BID PO Last administered on 07/31/18 21:59; Admin Dose 10 MG; Start 07/31/18 at 21:00 Nitroglycerin (Nitroglycerin (Sl Tab) 0.4 Mg) 1 tab Q5M PRN SL ANGINA; Start 07/31/18 at 19:00 CRYSTAL ALEMAN MD August 01, 2018 08:53
[2018-08-01] MEDS: BENAZEPRIL 10 MG TAB PO SCH ×2 (09:24→20:00)
[2018-08-01] MEDS: METOPROLOL (XL) 50 MG TAB PO SCH (09:24)
[2018-08-01] MEDS: CEFEPIME 1GM/50 ML (PMX) 50 ML IVPB SCH ×2 (13:28→23:31)
--- NOTE | 2018-08-01 14:36 | CONS ---
DATE OF ADMISSION: 07/30/2018 DATE OF CONSULTATION: 08/01/2018 TYPE OF CONSULTATION: Infectious disease. REASON FOR CONSULTATION: Antibiotic management. HISTORY OF PRESENT ILLNESS: Willie Ferrer is a 57-year-old female with history of hypertension who was diagnosed with left-sided locally advanced breast cancer. Her tumor was HER-2 positive. She th erefore underwent neoadjuvant chemotherapy with good response and was a candidate for breast conserva tion surgery. She underwent a needle-directed left partial mastectomy and axillary resection by Dr. Christopher Nolasco. Postoperatively, she has had significant pain and also uncontrolled blood pressure. S he is being admitted for further evaluation on 07/28/2018. She denies any nausea or vomiting. The p atient had locally advanced left breast cancer status post chemotherapy and left partial mastectomy w ith axillary resection. She was followed up by Dr. Wallace. The surgery was done on the 07/28/2018. She has had a lot of pain and shortness of breath. Her white count was 5900 with 64% neutrophils, h emoglobin and hematocrit 10.5 and 31.8, platelet count 187,000. Currently, her white count is 5.8, H and H is 11 and . The patient is currently on no antibiotic therapy. She is afebrile. Her est x-ray shows new left basilar infiltrate. She has a right Port-A-Cath. Mediastinum is unremarkab le. Left basilar linear opacity. PAST MEDICAL HISTORY: As outlined. FAMILY HISTORY: Noncontributory. SOCIAL HISTORY: She does not smoke, drink or abuse drugs. ALLERGIES: NONE TO PENICILLIN, SULFA OR FOODS. MEDICATIONS: Per chart. REVIEW OF SYSTEMS: As per HPI. PHYSICAL EXAMINATION: GENERAL: She is a well-developed, well-nourished female, alert, responsive, in no acute distress. VITAL SIGNS: Stable. She is afebrile. SKIN: Without generalized rash. HEENT: Within normal limits. NECK: Supple. LYMPH NODES: None palpable. CHEST: Decreased breath sounds at the bases. HEART: Without murmur or gallop. THORAX: Status post partial left mastectomy. ABDOMEN: Soft, nontender without organosplenomegaly or masses. EXTREMITIES: Without cyanosis, clubbing or edema. RECTAL AND GENITAL: Deferred. NEUROLOGIC: No focal neurological abnormality. IMPRESSION AND PLAN: The patient has developed new hospital acquired left basilar infiltrate. There are no cultures at this point. I do not think that she is bringing up any sputum. We will order a sputum for C and S and Gram stain, blood cultures x2 and start the patient on cefepime 1 gram q.12. I will dictate my findings to Dr. Marquez, Dr. Nolasco. Dictated By: FARHAN BAPTISTE MD, JD/NTS Conf#: [id number] DID#: [id number] CC: CHRISTOPHER NOLASCO MD; NIURKA MARQUEZ MD;*End*
[2018-08-01] MEDS: morphine 2 MG INJ IV PRN (15:21)
--- NOTE | 2018-08-01 15:58 | RADRPT ---
Vent Rate: 58 bpm RR Interval: 1036 msec RI Interval: 168 msec QRS Duration: 88 msec QT Interval: 413 msec QTC Interval: 406 msec P-R-T [place]: 66 - 42 - 53 degrees Sinus rhythm...normal P axis, V-rate 50- 99 Atrial premature complex...SV complex w/ short R-R interval Electronically Signed By: Aristides Arzola
--- NOTE | 2018-08-01 16:00 | RADRPT ---
Vent Rate: 67 bpm RR Interval: 0 msec PA Interval: 150 msec QRS Duration: 84 msec QT Interval: 406 msec QTC Interval: 429 msec P-R-T [place]: 29 - 47 - 56 degrees Sinus rhythm with premature atrial complexes with aberrant conduction Otherwise normal ECG Electronically Signed By: Aristides Arzola
--- NOTE | 2018-08-01 16:20 | PN ---
DATE: 08/01/2018 SUBJECTIVE: Postop day #4 status post left breast partial mastectomy with axillary dissection. Postoperatively, the patient continued to complain of too much chest pain especially getting aggravated by activity and also by taking deep breath. The patient was kept a couple of days under observation but since the pain still continued to be present, a consultation from device sales consultant was obtained and they are in the process of evaluating the patient. Also, chest x-ray was ordered and chest x-ray was done yesterday. The reading is that left basilar infiltrate present which is new from device sales consultant's point of view. Dr. Valdez, infectious disease, has seen the patient in consultation as well today and stated that the patient has developed new hospital acquired left basilar infiltrate. He has ordered sputum with culture and sensitivity and Gram stain, blood cultures x2 and start the patient on cefepime 1 gram IV q.12 hours. PHYSICAL EXAMINATION: HEART: Regular. LUNGS: Clear grossly. Chest wall dressing is intact. There is no limitation in deep breathing. ABDOMEN: Soft. ASSESSMENT AND PLAN: The patient is post partial mastectomy axillary dissection on left side. The patient got complicated with severe continued chest pain on the left side and in the course of workup, the patient has been seen by device sales consultant and by infectious disease. The patient's chest x-ray showed evidence of infiltration on the left side; therefore, antibiotic today was started by infectious disease. We are awaiting the final clearance of the device sales consultant. Otherwise from surgical point of view, the patient can be discharged any time. Dictated By: DAO JARRETT MD PS/NTS Conf#: [id number] DID#: [id number] CC: NIURKA MARQUEZ MD; BAIRON SCHMIDT MD;*EndCC* MTDD
--- NOTE | 2018-08-01 18:19 | PN ---
Date/Time of Note Date/Time of Note DATE: 08/01/18 TIME: 18:14 Assessment/Plan VTE Prophylaxis Risk score (from [facility])>0 risk: 7 SCD applied (from [facility]): Yes Pharmacological prophylaxis: NA/contraindicated Pharm contraindication: surgical contra Lines/Catheters IV Catheter Type (from [facility]): Saline Lock Assessment/Plan Hospital Course Patient is continues on supplemental oxygen without acute distress, chest x-ray revealed left lower lobe infiltrate we will start broad-spectrum antibiotics, ID consult. Assessment/Plan -Left lower lobe infiltrate, start antibiotics for pneumonia. Dr. Valdez is asked to see patient in infection disease consultation. -Postop bradycardia with chest pain and shortness of breath, rule out acute coronary syndrome. Troponin is negative x3. 2D echo with preserved ejection fraction. Dr. Alexis is following in cardiology consultation. -Locally advanced left breast cancer, status post chemo. S/p needle-directed left partial mastectomy and axillary dissection utilizing sentinel lymph node technique by Dr. Nolasco. Renew [place] and morphine as needed for pain and Zofran as needed for nausea. -Hypertension. Continue metoprolol. Further recommendations based on clinical course. Plan of care discussed with Dr. Nava. Result Diagram: 08/01/18 0545 08/01/18 0545 Results 24hrs Laboratory Tests Test 07/31/18 18:17 08/01/18 00:25 08/01/18 05:45 Troponin I < 0.012 < 0.012 White Blood Count 5.8 Red Blood Count 3.66 L Hemoglobin 11.4 L Hematocrit 35.0 L Mean Corpuscular Volume 95.6 Mean Corpuscular Hemoglobin 31.1 Mean Corpuscular Hemoglobin Concent 32.6 Red Cell Distribution Width 13.6 Platelet Count 235 Mean Platelet Volume 9.7 Immature Granulocytes % 0.300 Neutrophils % 59.2 Lymphocytes % 30.4 Monocytes % 7.6 Eosinophils % 2.2 Basophils % 0.3 Nucleated Red Blood Cells % 0.0 Immature Granulocytes # 0.020 Neutrophils # 3.4 Lymphocytes # 1.8 Monocytes # 0.4 Eosinophils # 0.1 Basophils # 0.0 Nucleated Red Blood Cells # 0.0 Sodium Level 140 Potassium Level 4.6 Chloride Level 105 Carbon Dioxide Level 26 Anion Gap 9 Blood Urea Nitrogen 11 Creatinine 0.53 Est Glomerular Filtrat Rate mL/min > 60 Glucose Level 124 Calcium Level 9.4 Triglycerides Level 158 H Cholesterol Level 166 LDL Cholesterol, Calculated 101 HDL Cholesterol 33 L Cholesterol/HDL Ratio 5.0 Exam/Review of Systems Exam Vitals Vital Signs Date Temp Pulse Resp B/P (MAP) Pulse Ox O2 O2 Flow FiO2 Time Delivery Rate 08/01/18 73 16:01 08/01/18 98.3 20 145/69 95 15:45 (94) 08/01/18 Nasal 2.0 09:27 Cannula Intake and Output 07/31/18 07/31/18 08/01/18 1515:00 23:00 07:00 IntakeIntake Total 900 ml 1400 ml BalanceBalance 900 ml 1400 ml Exam Constitutional: alert, oriented Respiratory: clear to auscultation Cardiovascular: regular rate and rhythm Gastrointestinal: soft, non-tender Extremities: normal pulses Neurological: nl mental status Additional Comments Status post left partial mastectomy Results Results 24hrs Laboratory Tests Test 07/31/18 18:17 08/01/18 00:25 08/01/18 05:45 Troponin I < 0.012 < 0.012 White Blood Count 5.8 Red Blood Count 3.66 L Hemoglobin 11.4 L Hematocrit 35.0 L Mean Corpuscular Volume 95.6 Mean Corpuscular Hemoglobin 31.1 Mean Corpuscular Hemoglobin Concent 32.6 Red Cell Distribution Width 13.6 Platelet Count 235 Mean Platelet Volume 9.7 Immature Granulocytes % 0.300 Neutrophils % 59.2 Lymphocytes % 30.4 Monocytes % 7.6 Eosinophils % 2.2 Basophils % 0.3 Nucleated Red Blood Cells % 0.0 Immature Granulocytes # 0.020 Neutrophils # 3.4 Lymphocytes # 1.8 Monocytes # 0.4 Eosinophils # 0.1 Basophils # 0.0 Nucleated Red Blood Cells # 0.0 Sodium Level 140 Potassium Level 4.6 Chloride Level 105 Carbon Dioxide Level 26 Anion Gap 9 Blood Urea Nitrogen 11 Creatinine 0.53 Est Glomerular Filtrat Rate mL/min > 60 Glucose Level 124 Calcium Level 9.4 Triglycerides Level 158 H Cholesterol Level 166 LDL Cholesterol, Calculated 101 HDL Cholesterol 33 L Cholesterol/HDL Ratio 5.0 Medications Medication Current Medications Ondansetron HCl (Zofran Inj) 4 mg Q6H PRN IV NAUSEA AND/OR VOMITING; Start 07/28/18 at 15:30 Potassium Chloride/Dextrose/ Sod Cl 1,000 ml @ 125 mls/hr Q8H IV Last administered on 08/01/18 15:21; Admin Dose 125 MLS/HR; Start 07/28/18 at 15:07 Morphine Sulfate (morphine) 2 mg Q1H PRN IV PAIN Last administered on 08/01/18 15:21; Admin Dose 2 MG; Start 07/28/18 at 15:30 Acetaminophen/ Hydrocodone Bitart ([place] (5/325)) 1 tab Q4H PRN PO MODERATE PAIN LEVEL 4-6 Last administered on 08/01/18 09:39; Admin Dose 1 TAB; Start 07/28/18 at 17:30 Hydralazine HCl (Apresoline) 20 mg Q6H PRN IV BP>160/100; Start 07/28/18 at 17:30 Metoprolol Succinate (Toprol Xl) 50 mg DAILY PO Last administered on 08/01/18 09:24; Admin Dose 50 MG; Start 07/29/18 at 09:00 Benazepril HCl (Lotensin) 10 mg BID PO Last administered on 08/01/18 09:24; Admin Dose 10 MG; Start 07/31/18 at 21:00 Nitroglycerin (Nitroglycerin (Sl Tab) 0.4 Mg) 1 tab Q5M PRN SL ANGINA; Start 07/31/18 at 19:00 Cefepime HCl 50 ml @ 100 mls/hr Q12 IVPB Last administered on 08/01/18 13:28; Admin Dose 100 MLS/HR; Start 08/01/18 at 13:00 ELENA YU August 01, 2018 18:19
[2018-08-02] VITALS (10 sets, daily range): BP systolic 95–138; BP diastolic 52–67; PULSE 63–96; RESP 18–20
[2018-08-02] MEDS: HYDROCODONE/APAP (5/325) TAB PO PRN ×2 (02:53→16:38)
[2018-08-02] MEDS: BENAZEPRIL 10 MG TAB PO SCH ×2 (08:13→21:14)
[2018-08-02] MEDS: CEFEPIME 1GM/50 ML (PMX) 50 ML IVPB SCH ×2 (08:13→21:13)
[2018-08-02] MEDS: METOPROLOL (XL) 50 MG TAB PO SCH (08:14)
[2018-08-02] MEDS: morphine 2 MG INJ IV PRN ×2 (08:21→23:22)
--- NOTE | 2018-08-02 13:39 | CONS ---
Assessment/Plan Assessment/Plan Hospital Course (Demo Recall) IMPRESSION: 1. Chest pain, assess for acute coronary syndrome. It does appear to be more related to the patient's surgical site, with movement of her upper torso, any palpation of the area and exertional activities.-neg trop x 3/NL EF by echo 2. Hypertension, somewhat labile, overall resolved, but likely related to pain. 3. History of dyslipidemia. 4. Breast carcinoma status post mastectomy and axillary node dissection. 5. Anemia. 6. PNA Recc: -Tele -Continue toprol and benazpril -Continue abx 's and f/u cx data -pain control Consultation Date/Type/Reason Admit Date/Time July 30, 2018 at 16:03 Initial Consult Date 07/30/18 Type of Consult Cardiology Reason for Consultation chest pain Requesting Provider: DAO JARRETT MD Date/Time of Note DATE: 08/02/18 TIME: 13:24 Exam/Review of Systems Vital Signs Vitals Vital Signs Date Temp Pulse Resp B/P (MAP) Pulse Ox O2 O2 Flow FiO2 Time Delivery Rate 08/02/18 74 12:12 08/02/18 98.2 20 95/52 (66) 96 Room Air 11:46 08/02/18 2.0 08:30 Intake and Output 08/01/18 08/01/18 08/02/18 1414:59 22:59 06:59 IntakeIntake Total 700 ml 450 ml BalanceBalance 700 ml 450 ml Exam Exam Review of Systems: CONSTITUTIONAL: No fevers, chills. PULMONARY: No sob CARDIOVASCULAR: No chest pain/palpitations GASTROINTESTINAL: No nausea/vomiting. GENITOURINARY: No hematuria/dysuria. MUSCULOSKELETAL: No myagias/arthalgias. PSYCHIATRIC: The patient denies depression. NEUROLOGIC: No weakness Constitutional: alert Psych: no complaints Head: normocephalic ENMT: mucosa pink and moist Neck: supple, jvd (9 cm water) Respiratory: clear to auscultation, other (chest covered by dressing) Cardiovascular: regular rate and rhythm Gastrointestinal: soft, non-tender Musculoskeletal: muscle tone (normal) Extremities: edema (none) Neurological: other (no focal deficits) Labs Result Diagram: 08/01/18 0545 08/01/1836 Medications Medications Current Medications Ondansetron HCl (Zofran Inj) 4 mg Q6H PRN IV NAUSEA AND/OR VOMITING; Start 07/28/18 at 15:30 Morphine Sulfate (morphine) 2 mg Q1H PRN IV PAIN Last administered on 08/02/18 08:21; Admin Dose 2 MG; Start 07/28/18 at 15:30 Acetaminophen/ Hydrocodone Bitart ([place] (5/325)) 1 tab Q4H PRN PO MODERATE PAIN LEVEL 4-6 Last administered on 08/02/18 02:53; Admin Dose 1 TAB; Start 07/28/18 at 17:30 Hydralazine HCl (Apresoline) 20 mg Q6H PRN IV BP>160/100 Last administered on 08/01/18 20:00; Admin Dose 20 MG; Start 07/28/18 at 17:30 Metoprolol Succinate (Toprol Xl) 50 mg DAILY PO Last administered on 08/02/18 08:14; Admin Dose 50 MG; Start 07/29/18 at 09:00 Benazepril HCl (Lotensin) 10 mg BID PO Last administered on 08/02/18 08:13; Admin Dose 10 MG; Start 07/31/18 at 21:00 Nitroglycerin (Nitroglycerin (Sl Tab) 0.4 Mg) 1 tab Q5M PRN SL ANGINA; Start 07/31/18 at 19:00 Cefepime HCl 50 ml @ 100 mls/hr Q12 IVPB Last administered on 08/02/18 08:13; Admin Dose 100 MLS/HR; Start 08/01/18 at 13:00 SREE IGLESIAS August 02, 2018 13:35
--- NOTE | 2018-08-02 14:07 | PN ---
Date/Time of Note Date/Time of Note DATE: 08/02/18 TIME: 14:04 Assessment/Plan VTE Prophylaxis Risk score (from [facility] [place])>0 risk: 6 SCD applied (from [facility] [place]): Yes Pharmacological prophylaxis: NA/contraindicated Pharm contraindication: surgical contra Lines/Catheters IV [facility]ter Type (from [facility]): Peripheral IV Assessment/Plan Hospital Course No acute events overnight, pain is adequately controlled, patient is continued on supplemental oxygen wean if possible, continue the cefepime for pneumonia. Patient is encouraged to use incentive spirometer, out of bed and ambulation. Assessment/Plan -Left lower lobe infiltrate, continue Cefepime. Dr. Valdez is following in inf ection disease consultation. -Postop bradycardia with chest pain and shortness of breath, rule out acute coronary syndrome. Troponin is negative x3. 2D echo with preserved ejection fraction. Dr. Alexis is following in cardiology consultation. -Locally advanced left breast cancer, status post chemo. S/p needle-directed left partial mastectomy and axillary dissection utilizing sentinel lymph node technique by Dr. Nolasco. [facility] and morphine as needed for pain and Zofran as needed for nausea. -Hypertension. Continue metoprolol. Further recommendations based on clinical course. Plan of care discussed with Dr. Nava. Result Diagram: 08/01/18 0545 08/01/18 0545 Exam/Review of Systems Exam Vitals Vital Signs Date Temp Pulse Resp B/P (MAP) Pulse Ox O2 O2 Flow FiO2 Time Delivery Rate 08/02/18 74 12:12 08/02/18 98.2 20 95/52 (66) 96 Room Air 11:46 08/02/18 2.0 08:30 Intake and Output 08/01/18 08/01/18 08/02/18 1515:00 23:00 07:00 IntakeIntake Total 700 ml 450 ml BalanceBalance 700 ml 450 ml Exam Constitutional: alert, oriented Respiratory: clear to auscultation Cardiovascular: regular rate and rhythm Gastrointestinal: soft, non-tender Extremities: normal pulses Neurological: nl mental status Additional Comments Status post left partial mastectomy Medications Medication Current Medications Ondansetron HCl (Zofran Inj) 4 mg Q6H PRN IV NAUSEA AND/OR VOMITING; Start 07/28/18 at 15:30 Morphine Sulfate (morphine) 2 mg Q1H PRN IV PAIN Last administered on 08/02/18 08:21; Admin Dose 2 MG; Start 07/28/18 at 15:30 Acetaminophen/ Hydrocodone Bitart ([place] (5/325)) 1 tab Q4H PRN PO MODERATE PAIN LEVEL 4-6 Last administered on 08/02/18 02:53; Admin Dose 1 TAB; Start 07/28/18 at 17:30 Hydralazine HCl (Apresoline) 20 mg Q6H PRN IV BP>160/100 Last administered on 08/01/18 20:00; Admin Dose 20 MG; Start 07/28/18 at 17:30 Metoprolol Succinate (Toprol Xl) 50 mg DAILY PO Last administered on 08/02/18 08:14; Admin Dose 50 MG; Start 07/29/18 at 09:00 Benazepril HCl (Lotensin) 10 mg BID PO Last administered on 08/02/18 08:13; Admin Dose 10 MG; Start 07/31/18 at 21:00 Nitroglycerin (Nitroglycerin (Sl Tab) 0.4 Mg) 1 tab Q5M PRN SL ANGINA; Start 07/31/18 at 19:00 Cefepime HCl 50 ml @ 100 mls/hr Q12 IVPB Last administered on 08/02/18 08:13; Admin Dose 100 MLS/HR; Start 08/01/18 at 13:00 ELENA YU August 02, 2018 14:07
--- NOTE | 2018-08-02 14:19 | CONS ---
Assessment/Plan Assessment/Plan Hospital Course (Demo Recall) Patient is alert looks comfortable no fevers overnight WBC yesterday 5.8 no shift no bands BUN 11 creatinine 0.53. Blood cultures remain negative sputum culture negative Chest x-ray 2 days ago revealed new left basilar infiltrate Antimicrobials: Cefepime Physical examination: Well-developed middle-aged woman who is alert in no distress. Head atraumatic normocephalic neck is supple chest rise symmetrical breath sounds clear heart S1-S2 abdomen soft bowel sounds present extremities without cyanosis skin patient has left chest dressing clean dry and intact Assessment: 1. Healthcare associated pneumonia 2. Locally advanced left breast cancer status post partial mastectomy with axillary dissection 07/28/18 3. Anemia 4. Hypertension Plan: Patient remains stable, on appropriate antibiotic regimen Consultation Date/Type/Reason Admit Date/Time July 30, 2018 at 16:03 Initial Consult Date Type of Consult id Requesting Provider: DAO JARRETT MD Date/Time of Note DATE: 08/02/18 TIME: 14:19 Exam/Review of Systems Exam Vitals Vital Signs Date Temp Pulse Resp B/P (MAP) Pulse Ox O2 O2 Flow FiO2 Time Delivery Rate 08/02/18 74 12:12 08/02/18 98.2 20 95/52 (66) 96 Room Air 11:46 08/02/18 2.0 08:30 Intake and Output 08/01/18 08/01/18 08/02/18 1515:00 23:00 07:00 IntakeIntake Total 700 ml 450 ml BalanceBalance 700 ml 450 ml Results Result Diagram: 08/01/18 0545 08/01/18 0545 Medications Medication Current Medications Ondansetron HCl (Zofran Inj) 4 mg Q6H PRN IV NAUSEA AND/OR VOMITING; Start 07/28/18 at 15:30 Morphine Sulfate (morphine) 2 mg Q1H PRN IV PAIN Last administered on 08/02/18at 08:21; Admin Dose 2 MG; Start 07/28/18 at 15:30 Acetaminophen/ Hydrocodone Bitart ([place] (5/325)) 1 tab Q4H PRN PO MODERATE PAIN LEVEL 4-6 Last administered on 08/02/18at 02:53; Admin Dose 1 TAB; Start 07/28/18 at 17:30 Hydralazine HCl (Apresoline) 20 mg Q6H PRN IV BP>160/100 Last administered on 08/01/18at 20:00; Admin Dose 20 MG; Start 07/28/18 at 17:30 Metoprolol Succinate (Toprol Xl) 50 mg DAILY PO Last administered on 08/02/18 08:14; Admin Dose 50 MG; Start 07/29/18 at 09:00 Benazepril HCl (Lotensin) 10 mg BID PO Last administered on 08/02/18at 08:13; Admin Dose 10 MG; Start 07/31/18 at 21:00 Nitroglycerin (Nitroglycerin (Sl Tab) 0.4 Mg) 1 tab Q5M PRN SL ANGINA; Start 07/31/18 at 19:00 Cefepime HCl 50 ml @ 100 mls/hr Q12 IVPB Last administered on 08/02/18 08:13; Admin Dose 100 MLS/HR; Start 08/01/18 at 13:00 HARVEY LOPEZ NP August 02, 2018 14:19
[2018-08-03] VITALS (7 sets, daily range): BP systolic 134–154; BP diastolic 64–88; PULSE 65–98; RESP 18–20
--- NOTE | 2018-08-03 07:10 | PN ---
DATE: 08/02/2018 Postop day #5 status post left breast partial mastectomy with axillary dissection for locally advanced cancer of left breast. The patient has got some problem postoperatively, there is too much pain in the left chest. she was evaluated by ski base trimmer and chest x-ray showed evidence of possible infiltration in the left lung which is reviewed with radiologist. Today, she feels better. No fevers. LABS: No labs done today. Chest x-ray today: A chest x-ray was done, but the report is not in the computer yet. PHYSICAL EXAMINATION: VITAL SIGNS: Temperature maximum 98.2, heart rate 68, blood pressure 95/56, saturation 96%. HEART: Normal. LUNGS: Clear. ABDOMEN: Soft. PLAN: The patient postop day #5. The patient was kept in the hospital postop because of too much pain. possibility of infiltration in the left lung base. Laminating Machine Operator did not find any pathology in the heart. So, from surgical stand point of view, patient can be discharged home today, Ultimatly the I.D group to decide how they want to manage the possible infection in the lung .. Dictated By: DAO CLAY/NTS Conf#: [id number] DID#: [id number] MTDD
[2018-08-03] MEDS: HYDROCODONE/APAP (5/325) TAB PO PRN (09:02)
[2018-08-03] MEDS: BENAZEPRIL 10 MG TAB PO SCH (09:03)
[2018-08-03] MEDS: METOPROLOL (XL) 50 MG TAB PO SCH (09:04)
[2018-08-03] MEDS: CEFEPIME 1GM/50 ML (PMX) 50 ML IVPB SCH (09:05)
--- NOTE | 2018-08-03 12:33 | CONS ---
Assessment/Plan Assessment/Plan Hospital Course (Demo Recall) No acute changes, looks comfortable, no fevers Blood cultures remain negative sputum culture negative Chest x-ray 2 days ago revealed new left basilar infiltrate Antimicrobials: Cefepime Physical examination: Well-developed middle-aged woman who is alert in no distress. Head atraumatic normocephalic neck is supple chest rise symmetrical breath sounds clear heart S1-S2 abdomen soft bowel sounds present extremities without cyanosis skin patient has left chest dressing clean dry and intact Assessment: 1. Healthcare associated pneumonia 2. Locally advanced left breast cancer status post partial mastectomy with axillary dissection 07/28/18 3. Anemia 4. Hypertension Plan: Patient remains stable, ok dc on oral Levaquin for 5 more days Consultation Date/Type/Reason Admit Date/Time July 30, 2018 at 16:03 Initial Consult Date Type of Consult id Requesting Provider: DAO JARRETT MD Date/Time of Note DATE: 08/03/18 TIME: 12:30 Exam/Review of Systems Exam Vitals Vital Signs Date Temp Pulse Resp B/P (MAP) Pulse Ox O2 O2 Flow FiO2 Time Delivery Rate 08/03/18 98.7 67 19 134/64 97 Room Air 11:44 (87) 08/03/18 2.0 08:00 Intake and Output 08/02/18 08/02/18 08/03/18 1515:00 23:00 07:00 IntakeIntake Total 50 ml 1650 ml 450 ml BalanceBalance 50 ml 1650 ml 450 ml Results Result Diagram: 08/01/18 0545 08/01/18 0545 Medications Medication Current Medications Ondansetron HCl (Zofran Inj) 4 mg Q6H PRN IV NAUSEA AND/OR VOMITING; Start 07/28/18 at 15:30 Morphine Sulfate (morphine) 2 mg Q1H PRN IV PAIN Last administered on 08/02/18at 23:22; Admin Dose 2 MG; Start 07/28/18 at 15:30 Acetaminophen/ Hydrocodone Bitart ([place] (5/325)) 1 tab Q4H PRN PO MODERATE PAIN LEVEL 4-6 Last administered on 08/03/18at 09:02; Admin Dose 1 TAB; Start 07/28/18 at 17:30 Hydralazine HCl (Apresoline) 20 mg Q6H PRN IV BP>160/100 Last administered on 08/01/18at 20:00; Admin Dose 20 MG; Start 07/28/18 at 17:30 Metoprolol Succinate (Toprol Xl) 50 mg DAILY PO Last administered on 08/03/18 09:04; Admin Dose 50 MG; Start 07/29/18 at 09:00 Benazepril HCl (Lotensin) 10 mg BID PO Last administered on 08/03/18at 09:03; Admin Dose 10 MG; Start 07/31/18 at 21:00 Nitroglycerin (Nitroglycerin (Sl Tab) 0.4 Mg) 1 tab Q5M PRN SL ANGINA; Start 07/31/18 at 19:00 Cefepime HCl 50 ml @ 100 mls/hr Q12 IVPB Last administered on 08/03/18at 09:05; Admin Dose 100 MLS/HR; Start 08/01/18 at 13:00 HARVEY LOPEZ NP August 03, 2018 12:33
[2018-08-03] MEDS ORDERED: LEVO750T25 PO (12:50)
[2018-08-03] MEDS ORDERED: BENA10TA4 PO (12:50)
[2018-08-03] MEDS ORDERED: HYDR-3601 PO (12:50)
[2018-08-03] MEDS ORDERED: METO-319 PO (12:50)
--- NOTE | 2018-08-03 15:21 | PN ---
DATE: 08/03/2018 Postop day #6. SUBJECTIVE: The patient states that she is doing fine. Still has some chest pain, but much better. OBJECTIVE: GENERAL: Awake, alert, oriented x3, sitting on the chair by the bed having lunch. VITAL SIGNS: Temperature maximum 98.9, heart rate 83, respirations 19, blood pressure 134/64, satura tion 97% room air. HEART: Regular. LUNGS: Clear. ABDOMEN: Soft. Dressing was inspected. The round bias dressing was removed. The other dressing is intact. I inspected the wound. The wounds are clean and intact. No cellulitis. No evidence of in fection. Abdomen is soft. LABORATORY DATA: No labs today. ASSESSMENT AND PLAN: The patient with left partial mastectomy with axillary dissection postop day #6 . The patient had some extraordinary chest pain postop for which she was seen by dye house vat worker. Rosa grimes, dye house vat worker cleared the patient for discharge. No heart problem. Chest x-ray has shown possible little infiltration in left lower lung field and for that matter, she has been started on antibiotic by the infectious disease. Again today, I talked with infectious disease people. From surgical poi nt of view, the patient can be discharged and they said they are going to give the patient antibiotic by p.o. and the internal medicine service nurse practitioner Carla is going to discharge the patient today to be followed by Dr. Nolasco in his office next Tuesday. Dictated By: DAO JARRETT MD PS/NTS Conf#: [id number] DID#: [id number] CC: BAIRON NOLASCO MD; NIURKA MARQUEZ MD;*EndCC*
--- NOTE | 2018-08-05 22:40 | DS ---
Date/Time of Note Date/Time of Note DATE: 08/05/18 TIME: 22:38 Discharge Summary Admission/Discharge Info Admit Date/Time July 30, 2018 at 16:03 Discharge Date/Time August 03, 2018 at 15:20 Patient Condition: Stable Hx of Present Illness History has been obtained from medical record and discussion with patient's daughter. The patient is a 57-year-old female with history of hypertension who was diagnosed with a left-sided locally advanced breast cancer. The patient's tumor was HER-2 positive. The patient therefore underwent neoadjuvant chemotherapy with good response and was a candidate for breast conservation surgery. The patient underwent needle-directed left partial mastectomy and axillary resection by Dr. Christopher Nolasco. Postoperatively the patient has significant pain and also had uncontrolled blood pressure. The patient is being admitted for further evaluation and management. Hospital Course Assessment/Plan -Left lower lobe infiltrate, s/p Cefepime. Dr. Vadlez is following in infection disease consultation. -Postop bradycardia with chest pain and shortness of breath, resolved, rule out acute coronary syndrome. Troponin is negative x3. 2D echo with preserved ejection fraction. Dr. Alexis is following in cardiology consultation. -Locally advanced left breast cancer, status post chemo. S/p needle-directed left partial mastectomy and axillary dissection utilizing sentinel lymph node technique by Dr. Nolasco. [facility] [place] and morphine as needed for pain and Zofran as needed for nausea. -Hypertension. Continue metoprolol and Benazepril. Plan of care discussed with Dr. Nava. Home Meds Active Scripts Levofloxacin* (Levaquin*) 750 Mg Tablet, 750 MG PO DAILY for 5 Days, TAB Prov:ELENA YU 08/03/18 Hydrocodone Bit-Acetaminophen (Hydrocodone Bit-APAP) 5-325MG Tablet, 1 TAB PO Q4H PRN for MODERATE PAIN LEVEL 4-6, #30 TAB Prov:ELENA YU 08/03/18 Benazepril Hcl* (Benazepril Hcl*) 10 Mg Tablet, 10 MG PO BID for 30 Days, TAB Prov:ELENA YU 08/03/18 Metoprolol Succinate* (Toprol XL*) 50 Mg Tab.er.24h, 50 MG PO DAILY for 30 Days Prov:ELENA YU 08/03/18 Discontinued Reported Medications Metoprolol Succinate* (Toprol XL*) 25 Mg Tab.sr.24h, 25 MG PO DAILY, #30 TAB 02/07/18 Follow-up Plan Follow-up with Dr. Nolasco in 1 week. Primary Care Provider Not On Staff Doctor Time spent on discharge: > 30 minutes ELENA YU August 05, 2018 22:40
== END 2018-08-03 15:20 | disposition home or self-care (01) | DRG 579 ==
LOC: SDS 09:11 → INTOOBSV 15:09 → SDS 15:09 → REC 15:09 → 6WM 17:06 → OBSVTOIN 07-30 16:03
PROVIDERS: ADMIT Surgery Surgical Oncology; ATTEND Surgery Surgical Oncology
PROC: 0HBU0ZZ Excision of Left Breast, Open Approach (ICD-10-PCS; 2018-07-28)
PROC: 07B60ZX Excision of Left Axillary Lymphatic, Open Approach, Diagnostic (ICD-10-PCS; principal; 2018-07-28 12:30)
DX: C50.912 Malignant neoplasm of unspecified site of left female breast (principal); J18.9 Pneumonia, unspecified organism; R00.1 Bradycardia, unspecified; Z17.0 Estrogen receptor positive status [ER+]; D64.9 Anemia, unspecified; I10 Essential (primary) hypertension; R07.9 Chest pain, unspecified; G89.18 Other acute postprocedural pain
CPT/HCPCS: 71045; 71046; 80048; 80061; 84484; 85025; 87070; 88307; 93005; 93306; 97161; 99217; G0378; J0360; J0690; J0692; J1170; J1885; J2175; J2250; J2270; J2405; J3010; J3480; Q9968